=== PATIENT | female | born 1935 | race Caucasian/White ===

== ENCOUNTER 2018-09-04 19:37 | Emergency (ER) | payer MEDICARE ==
[2018-09-04] MEDS ORDERED: ONDANSETRON 4 MG TAB.RAPDIS PO ONE (19:56)
--- NOTE | 2018-09-04 19:59 | ER Document Report ---
ED Medical Screen (RME) - General Stated Complaint: ABDOMINAL PAIN Time Seen by Provider: 09/04/18 19:48 Notes: 83-year-old female patient with chronic A. fib, hypertension, hyperlipidemia, no history of coronary artery disease. There is probably some dementia. She is complaining of a posterior cervical/occipital type headache for the past 3 days. She has had mid abdominal pain but she is not sure how many days. There has been nausea without vomiting. She is on Coumadin. I have greeted and performed a rapid initial assessment of this patient. A comprehensive ED assessment and evaluation of the patient, analysis of test results and completion of the medical decision making process will be conducted by additional ED providers. TRAVEL OUTSIDE OF THE [place] IN LAST 30 DAYS: No - Related Data Allergies/Adverse Reactions: codeine [Codeine] Allergy (Verified 07/21/14 14:09) ITCHING phenobarbital [Phenobarbital] Allergy (Verified 07/21/14 14:09) clarithromycin [From Biaxin] Adverse Reaction (Verified 07/27/14 09:52) propafenone HCl [From Rythmol] Adverse Reaction (Verified 07/27/14 09:52) Past Medical History - Social History Frequency of alcohol use: None Drug Abuse: None - Past Medical History Cardiac Medical History: Reports: Hx Hypertension - VARIES Denies: Hx Heart Attack Pulmonary Medical History: Denies: Hx Asthma Neurological Medical History: Denies: Hx Cerebrovascular Accident, Hx Seizures Renal/ Medical History: Denies: Hx Peritoneal Dialysis GI Medical History: Denies: Hx Hepatitis, Hx Hiatal Hernia, Hx Ulcer Infectious Medical History: Denies: Hx Hepatitis Past Surgical History: Reports: Hx Hysterectomy. Denies: Hx Mastectomy, Hx Open Heart Surgery, Hx Pacemaker Doctor's Discharge - Discharge Referrals: ERIKA BAUTISTA MD [Primary Care Provider] - Follow up as needed
[2018-09-04 20:45] LABS: ABSOLUTE LYMPHOCYTES (AUTO) 1.2 10^3/uL (0.5-4.7); ABSOLUTE MONOCYTES (AUTO) 0.4 10^3/uL (0.1-1.4); ABSOLUTE NEUT (AUTO) 7.2 10^3/uL (1.7-8.2); BASOPHILS % (AUTO) 0.2 % (0-2); EOSINOPHILS % (AUTO) 0.3 % (0-6); HEMATOCRIT 36.9 % (36.0-47.0); HEMOGLOBIN 12.9 g/dL (12.0-15.5); LYMPHOCYTES % (AUTO) 13.7 % (13-45); MEAN CORPUSCULAR HEMOGLOBIN 30.3 pg (27.0-33.4); MEAN CORPUSCULAR HGB CONC 34.9 g/dL (32.0-36.0); MEAN CORPUSCULAR VOLUME 87 fl (80-97); MONOCYTES % (AUTO) 4.7 % (3-13); PLATELET COUNT 186 10^3/uL (150-450); RED BLOOD COUNT 4.26 10^6/uL (3.72-5.28); RED CELL DISTRIBUTION WIDTH 13.3 % (11.5-14.0); SEGMENTED NEUTROPHILS % (AUTO) 81.1 % (42-78); TOTAL CELLS COUNTED % (AUTO) 100 %; WHITE BLOOD COUNT 8.9 10^3/uL (4.0-10.5)
[2018-09-04 21:09] LABS: INTERNATIONAL RATION (INR) 3.21; PROTHROMBIN TIME 34.3 SEC (11.4-15.4)
[2018-09-04 21:15] LABS: CREATINE KINASE MB 1.16 ng/mL (<4.55); TROPONIN I 0.015 ng/mL
[2018-09-04 21:47] LABS: ALANINE AMINOTRANSFERASE 23 U/L (9-52); ALBUMIN 4.1 g/dL (3.5-5.0); ALKALINE PHOSPHATASE 57 U/L (38-126); ANION GAP 12 (5-19); ASPARTATE AMINO TRANSFERASE 29 U/L (14-36); BILIRUBIN,DIRECT 0.3 mg/dL (0.0-0.4); BILIRUBIN,TOTAL 0.7 mg/dL (0.2-1.3); BLOOD UREA NITROGEN 16 mg/dL (7-20); CALCIUM 9.1 mg/dL (8.4-10.2); CARBON DIOXIDE 23 mmol/L (22-30); CHLORIDE 97 mmol/L (98-107); CREATINE KINASE 25 U/L (30-135); GLUCOSE 127 mg/dL (75-110); LIPASE 75.7 U/L (23-300); SODIUM 132.3 mmol/L (137-145); TOTAL PROTEIN 7.1 g/dL (6.3-8.2)
[2018-09-04 21:59] LABS: APPEARANCE,URINE CLEAR; BILIRUBIN,URINE NEGATIVE (NEGATIVE); COLOR,URINE YELLOW; GLUCOSE, URINE NEGATIVE (NEGATIVE); KETONES,URINE 20 mg/dL (NEGATIVE); LEUKOCYTE ESTERASE,URINE TRACE (NEGATIVE); NITRITE,URINE NEGATIVE (NEGATIVE); PROTEIN,URINE NEGATIVE (NEGATIVE); URINE SPECIFIC GRAVITY 1.019; UROBILINOGEN,URINE NEGATIVE mg/dL (<2.0)
[2018-09-04] MEDS ORDERED: NORMAL SALINE 1000 ML 500 ML IV ONE (22:00)
--- NOTE | 2018-09-04 22:01 | ER Document Report ---
ED General - General Stated Complaint: ABDOMINAL PAIN Time Seen by Provider: 09/04/18 19:48 Cannot obtain history due to: Altered mental status Notes: Patient is an 83-year-old female who presents with her with concerns of confusion, sleeping all day, having complained of intermittent abdominal pain for the past 5 days. The patient is also apparently complained of intermittent headache for the past 3 days. She does not provide any history to me. She is sleeping throughout the entire history, wakes briefly and then falls immediately back to sleep TRAVEL OUTSIDE OF THE [place] IN LAST 30 DAYS: No - Related Data Allergies/Adverse Reactions: codeine [Codeine] Allergy (Verified 07/21/14 14:09) ITCHING phenobarbital [Phenobarbital] Allergy (Verified 07/21/14 14:09) clarithromycin [From Biaxin] Adverse Reaction (Verified 07/27/14 09:52) propafenone HCl [From Rythmol] Adverse Reaction (Verified 07/27/14 09:52) Past Medical History - General Information source: Relative - Social History Smoking Status: Never Smoker Frequency of alcohol use: None Drug Abuse: None Lives with: Parents Family History: Reviewed & Not Pertinent Patient has suicidal ideation: No Patient has homicidal ideation: No - Past Medical History Cardiac Medical History: Reports: Hx Hypertension - VARIES Denies: Hx Heart Attack Pulmonary Medical History: Denies: Hx Asthma Neurological Medical History: Denies: Hx Cerebrovascular Accident, Hx Seizures Renal/ Medical History: Denies: Hx Peritoneal Dialysis GI Medical History: Denies: Hx Hepatitis, Hx Hiatal Hernia, Hx Ulcer Infectious Medical History: Denies: Hx Hepatitis Past Surgical History: Reports: Hx Hysterectomy. Denies: Hx Mastectomy, Hx Open Heart Surgery, Hx Pacemaker Review of Systems - Review of Systems -: Yes ROS unobtainable due to patient's medical condition Physical Exam - Vital signs Vitals: Temp Pulse Resp BP Pulse Ox 97.6 F 65 16 160/68 H 97 09/04/18 19:43 09/04/18 19:43 09/04/18 19:43 09/04/18 19:43 09/04/18 19:43 Interpretation: Normal Notes: PHYSICAL EXAMINATION: GENERAL: Sleeping soundly, wakes to loud voice HEAD: Atraumatic, normocephalic. EYES: Pupils equal round and reactive to light, extraocular movements intact, sclera anicteric, conjunctiva are normal. ENT: nares patent, oropharynx clear without exudates. Mildly dry mucous membranes. NECK: Normal range of motion, supple without lymphadenopathy LUNGS: Breath sounds clear to auscultation bilaterally and equal. No wheezes rales or rhonchi. HEART: Irregular regular rate and rhythm without murmurs ABDOMEN: Soft, nontender, normoactive bowel sounds. No guarding, no rebound. No masses appreciated. EXTREMITIES: Normal range of motion, no pitting or edema. No cyanosis. NEUROLOGICAL: Face symmetric. Tongue protrudes midline. Extraocular motions intact. Pupils are 2 mm and equally reactive. Normal speech, normal gait. 5 out of 5 strength in both the distal and proximal upper and lower extremities bilaterally. Sensation is grossly intact throughout. Finger to nose testing normal. Pronator drift normal. PSYCH: Lethargic, wakes only to loud voice or noxious stimulus SKIN: Warm, Dry, normal turgor, well-healing incision to the right tibial plateau surface Course - Re-evaluation Re-evalutation: 09/04/18 21:59 Presentation of altered mental status with complaints of intermittent abdominal pain. Patient does not answer any my questions, her states that for the past 5 days he has noted a progressive decline in her mental status. For me the patient is effectively somnolent, wakes to loud voice and repeated stimulation but rapidly falls back asleep mid conversation. She follows commands in all 4 extremities after repeated requests. No focal neurologic deficit. No evidence of head trauma. She had a lesion removed from her left tibial surface, wound is well healing, no evidence of infection. Labs show a subtherapeutic INR, UA pending. Will also obtain a CT of the head and chest x- ray. Patient is profoundly altered, will require hospitalization. 09/05/18 2300 I contacted radiology several times awaiting reports. Patient's mental status has improved substantially she is now awake, talking, oriented x3. Suspect that she may have taken Tylenol PM per the 's report. 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 I have reassessed the patient's neurologic exam. Thankfully, she is now fully awake, alert, oriented. She has no focal neurologic deficits on exam. She does report that she may have had some falls over the last several days. I have ordered FFP, IV vitamin K for supratherapeutic INR reversal. I have contacted [facility] and have requested transfer. Dexamethasone 10 mg is also been administered. 09/05/18 01:43 I spoken to the neurosurgeon on-call at [facility] Dr. Fajardo who agrees with management. He has accepted the patient in transfer. The patient continues to be alert and oriented. Continue to monitor closely. 09/05/18 03:51 Patient has remained neurologically intact, mentating normally. She is appropriate for transport. - Vital Signs Vital signs: Temp Pulse Resp BP Pulse Ox 98.6 F 85 14 169/84 H 98 09/05/18 02:48 09/05/18 03:31 09/05/18 03:31 09/05/18 03:31 09/05/18 03:31 - Laboratory Result Diagrams: 09/04/18 20:20 09/04/18 20:20 Laboratory results interpreted by me: 09/04/18 09/04/18 09/04/18 20:20 20:20 20:20 Seg Neutrophils % 81.1 H PT 34.3 H Sodium 132.3 L Chloride 97 L Glucose 127 H Creatine Kinase 25 L Urine Ketones Ur Leukocyte Esterase Urine Ascorbic Acid 09/04/18 21:42 Seg Neutrophils % PT Sodium Chloride Glucose Creatine Kinase Urine Ketones 20 H Ur Leukocyte Esterase TRACE H Urine Ascorbic Acid 40 H - Diagnostic Test Radiology reviewed: Image reviewed, Reports reviewed Radiology results interpreted by me: 09/05/18 03:51 Chest x-ray: No acute infiltrate or pneumothorax CT head: Bilateral 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, rightward shift Critical Care Note - Critical Care Note Total time excluding time spent on procedures (mins): 36 Comments: Critical care time spent obtaining history from patient or surrogate, discussions with consultants, development of treatment plan with patient or surrogate, evaluation of patient's response to treatment, examination of patient , ordering and performing treatments and interventions, ordering and review of laboratory studies, re-evaluation of patient's condition, ordering and review of radiographic studies and review of old charts Discharge - Discharge Clinical Impression: Bilateral subdural hematomas Altered mental status Qualifiers: Altered mental status type: disorientation Qualified Code(s): R41.0 - Disorientation, unspecified Headache Qualifiers: Headache type: unspecified Headache chronicity pattern: acute headache Intractability: not intractable Qualified Code(s): R51 - Headache Condition: Fair Disposition: [facility] Referrals: ERIKA BAUTISTA MD [Primary Care Provider] - Follow up as needed
--- NOTE | 2018-09-04 22:35 | RADIOLOGY REPORT (SQ) ---
EXAM DESCRIPTION: XR CHEST 1 VIEW COMPLETED DATE/TME: 09/04/2018 21:58 CLINICAL HISTORY: ams COMPARISON: None FINDINGS: Cardiac silhouette is within normal limits. Aorta is tortuous. There is atherosclerosis. EKG leads project over the chest. There is no focal parenchymal or pleural disease. There is no acute osseous process visualized. IMPRESSION: No evidence of acute cardiopulmonary disease.
[2018-09-05] MEDS ORDERED: DEXAMETHASONE SOD PHOS INJ 10 MG/1 ML VIAL IV ONE (00:53)
[2018-09-05] MEDS ORDERED: PHYTONADIONE INJ 10 MG/1 ML AMPULE IV ONE (00:54)
[2018-09-05] MEDS ORDERED: NORMAL SALINE 250 ML IV PRN (00:54)
--- NOTE | 2018-09-05 00:57 | RADIOLOGY REPORT (SQ) ---
CLINICAL DATA: 83-year-old female with altered mental status. TECHNICAL DATA: Multiple axial CT images of the brain were performed followed by sagittal and coronal reconstructed images. The CT study is performed according to ALARA (as low as reasonably achievable) or ALARA/IMAGE GENTLY, with automatic adjustment of mA and/or kV according to patient size. Comparisons: None. FINDINGS: There are bilateral mixed attenuation extra-axial fluid collections larger on the left consistent with acute on chronic subdural hematomas. The left subdural fluid collection measures approximately 1.5 cm in diameter (series 2, image 20). The right subdural fluid collection measures approximately 0.5 cm in diameter (series 2, image 22). There is approximately 0.5 cm of subfalcine herniation to the right of midline. There is sulcal effacement over both cerebral convexities. There is mass effect on the atria and posterior horn of the left lateral ventricle. No definite intraparenchymal hemorrhage is identified. No intraventricular hemorrhage is seen. There is no evidence of hydrocephalus. There are scattered patchy areas of decreased subcortical and periventricular attenuation most consistent with mild chronic microangiopathy.. There is no significant mucosal thickening of the paranasal sinuses. The mastoid air cells are clear. The orbital contents are grossly unremarkable. No acute osseous abnormalities are identified. IMPRESSION: 1. Bilateral mixed attenuation extra-axial fluid collections larger on the left consistent with acute on chronic subdural hematomas with approximately 0.5 cm subfalcine herniation to the right of midline. 2. There is diffuse sulcal effacement over both cerebral convexities consistent with underlying cerebral edema. These critical findings were discussed with Dr. Blackburn on 09/04/2018 at 11:50 AM central time.
--- NOTE | 2018-09-05 01:15 | RADIOLOGY REPORT (SQ) ---
CLINICAL DATA: 83-year-old female TECHNICAL DATA: Axial CT imaging of the abdomen and pelvis was performed following the administration of intravenous contrast.. Sagittal and coronal reconstructed images were then performed. The CT study is performed according to ALARA (as low as reasonably achievable) or ALARA/IMAGE GENTLY, with automatic adjustment of mA and/or kV according to patient size. Comparison: None FINDINGS: Lung bases: The lung bases are clear. There is minimal bibasilar atelectasis and/or fibrosis. Liver:The liver is normal in size and configuration. No focal hepatic abnormalities are identified. Liver attenuation is within normal limits. Spleen:The spleen is normal is size, configuration and attenuation. Gallbladder and bile duct: The gallbladder is well distended and unremarkable. There is no biliary ductal dilatation. Pancreas: The pancreas is grossly normal in size and configuration. Adrenal Glands:The adrenal glands are normal in size and configuration. Kidneys:The kidneys are normal in size and configuration. There is no evidence of hydronephrosis. There is no evidence of nephrolithiasis. No definite solid or cystic renal mass lesions are identified. Stomach:The stomach is grossly normal. There is no definite hiatal hernia. Bowel:The bowel gas pattern is non specific and non obstructive. Appendix: There is no CT evidence of acute appendicitis. Free air:There is no evidence of free air. Free fluid: There is no evidence of free fluid. Vasculature: The aorta is normal in caliber and contour. There are atherosclerotic calcifications along the abdominal aorta and iliac arteries. The inferior vena cava is grossly unremarkable. Lymphadenopathy: No pathologic lymphadenopathy is identified. Bladder: The bladder is well distended and smooth in contour. Reproductive: The uterus is surgically absent. Bones: No acute osseous abnormalities are identified. There are mild degenerative changes along the visualized thoracolumbar spine. Soft tissues: No focal soft tissue abnormalities are identified. IMPRESSION: 1. No evidence of acute intra-abdominal or intrapelvic pathology. 2. Mild degenerative changes along the skeletal and vascular structures.
[2018-09-05 04:24] VITALS: BP 165/76
--- NOTE | 2018-09-05 10:13 | EKG REPORT ---
SEVERITY:- ABNORMAL ECG - SINUS RHYTHM LBBB WITH PRIMARY T WAVE CHANGES : Confirmed by: Abelardo Pittman 05-Sep-2018 10:13:04
== END 2018-09-05 04:20 | disposition short-term general hospital (02) ==
LOC: ER 19:37
DX: I62.00 Nontraumatic subdural hemorrhage, unspecified (principal); R41.0 Disorientation, unspecified; R10.9 Unspecified abdominal pain; R51 Headache; Z88.6 Allergy status to analgesic agent; Z90.710 Acquired absence of both cervix and uterus
CPT/HCPCS: 93005; 99291; 86900; 86901; 36415; 82553; 36430; 82550; 83690; 85025; 85652; 85610; 80053; 81001; 84484; 71045; 70450; 74177; 93010; P9017; A9270; J3430; J7030; J1100; S0119

== ENCOUNTER 2018-09-15 15:41 | Emergency (ER) | payer MEDICARE ==
[2018-09-15] MEDS ORDERED: ASPIRIN 81 MG TABLET, CHEWABLE PO ONE (16:20)
--- NOTE | 2018-09-15 16:23 | ER Document Report ---
ED Medical Screen (RME) - General Chief Complaint: Irregular Pulse Stated Complaint: POSSIBLE AFIB Time Seen by Provider: 09/15/18 16:13 Mode of Arrival: Ambulatory Information source: Patient Notes: Patient presents to the ED for complaints of palpitations. Patient says that she picked up her cat and then noticed her heart racing. She does have a history of A. fib. She says that her heart felt like it was racing faster than she ever felt before. She was having associated shortness of breath. 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 She was sent to [facility]. Patient has been off her warfarin since then. She denies headache, vision changes, speech changes, numbness, tingling, or weakness. I have greeted and performed a rapid initial assessment of this patient. A comprehensive ED assessment and evaluation of the patient, analysis of test results and completion of the medical decision making process will be conducted by additional ED providers. PHYSICAL EXAMINATION: GENERAL: Well-appearing, well-nourished and in no acute distress. HEAD: Atraumatic, normocephalic. EYES: Pupils equal round extraocular movements intact, conjunctiva are normal. ENT: Nares patent NECK: Normal range of motion LUNGS: No respiratory distress Musculoskeletal: Normal range of motion NEUROLOGICAL: Normal speech, normal gait. PSYCH: Normal mood, normal affect. SKIN: Warm, Dry, normal turgor, no rashes or lesions noted. TRAVEL OUTSIDE OF THE [place] IN LAST 30 DAYS: No - Related Data Allergies/Adverse Reactions: codeine [Codeine] Allergy (Verified 07/21/14 14:09) ITCHING phenobarbital [Phenobarbital] Allergy (Verified 07/21/14 14:09) clarithromycin [From Biaxin] Adverse Reaction (Verified 07/27/14 09:52) propafenone HCl [From Rythmol] Adverse Reaction (Verified 07/27/14 09:52) Past Medical History - Social History Chew tobacco use (# tins/day): No Frequency of alcohol use: None Drug Abuse: None - Past Medical History Cardiac Medical History: Reports: Hx Atrial Fibrillation, Hx Hypertension - VARIES Denies: Hx Heart Attack Pulmonary Medical History: Denies: Hx Asthma Neurological Medical History: Denies: Hx Cerebrovascular Accident, Hx Seizures Renal/ Medical History: Denies: Hx Peritoneal Dialysis GI Medical History: Reports: Hx Gastroesophageal Reflux Disease. Denies: Hx Hepatitis, Hx Hiatal Hernia, Hx Ulcer Infectious Medical History: Denies: Hx Hepatitis Past Surgical History: Reports: Hx Cardiac Catheterization - breast tumor non cancer, Hx Hysterectomy. Denies: Hx Mastectomy, Hx Open Heart Surgery, Hx Pacemaker Physical Exam - Vital signs Vitals: Temp Pulse Resp BP Pulse Ox 97.6 F 67 14 143/71 H 95 09/15/18 16:00 09/15/18 16:00 09/15/18 16:00 09/15/18 16:00 09/15/18 16:00 Course - Vital Signs Vital signs: Temp Pulse Resp BP Pulse Ox 97.6 F 67 14 143/71 H 95 09/15/18 16:00 09/15/18 16:00 09/15/18 16:00 09/15/18 16:00 09/15/18 16:00 Doctor's Discharge - Discharge Referrals: ERIKA BAUTISTA MD [Primary Care Provider] - Follow up as needed
[2018-09-15 16:51] LABS: HEMATOCRIT 39.1 % (36.0-47.0); HEMOGLOBIN 13.5 g/dL (12.0-15.5); MEAN CORPUSCULAR HEMOGLOBIN 30.1 pg (27.0-33.4); MEAN CORPUSCULAR HGB CONC 34.4 g/dL (32.0-36.0); MEAN CORPUSCULAR VOLUME 88 fl (80-97); PLATELET COUNT 191 10^3/uL (150-450); RED BLOOD COUNT 4.47 10^6/uL (3.72-5.28); RED CELL DISTRIBUTION WIDTH 13.8 % (11.5-14.0); WHITE BLOOD COUNT 16.2 10^3/uL (4.0-10.5)
--- NOTE | 2018-09-15 17:07 | RADIOLOGY REPORT (SQ) ---
EXAM DESCRIPTION: CHEST SINGLE VIEW COMPLETED DATE/TIME: 09/15/2018 4:57 pm REASON FOR STUDY: palpitations COMPARISON: 09/04/2018 EXAM PARAMETERS: NUMBER OF VIEWS: One view. TECHNIQUE: Single frontal radiographic view of the chest acquired. RADIATION DOSE: NA LIMITATIONS: None. FINDINGS: LUNGS AND PLEURA: The lungs are somewhat hyperexpanded. There is no infiltrate or effusio n. There is no mass. MEDIASTINUM AND HILAR STRUCTURES: No masses. Contour normal. HEART AND VASCULAR STRUCTURES: Heart normal in size. Normal vasculature. BONES: No acute findings. HARDWARE: None in the chest. OTHER: No other significant finding. IMPRESSION: Chronic lung changes with no acute cardiopulmonary disease. TECHNICAL DOCUMENTATION: JOB ID: [id number] [employer]- All Rights Reserved Reading location - IP/workstation name: [email or web address]
[2018-09-15 17:13] LABS: ALANINE AMINOTRANSFERASE 73 U/L (9-52); ALBUMIN 3.5 g/dL (3.5-5.0); ALKALINE PHOSPHATASE 46 U/L (38-126); ANION GAP 11 (5-19); ASPARTATE AMINO TRANSFERASE 64 U/L (14-36); BILIRUBIN,DIRECT 0.2 mg/dL (0.0-0.4); BILIRUBIN,TOTAL 0.9 mg/dL (0.2-1.3); BLOOD UREA NITROGEN 37 mg/dL (7-20); CALCIUM 8.4 mg/dL (8.4-10.2); CARBON DIOXIDE 25 mmol/L (22-30); CHLORIDE 96 mmol/L (98-107); GLUCOSE 120 mg/dL (75-110); POTASSIUM 4.4 mmol/L (3.6-5.0); SODIUM 132.1 mmol/L (137-145); TOTAL PROTEIN 6.2 g/dL (6.3-8.2)
[2018-09-15 17:14] LABS: CREATINE KINASE < 20 U/L (30-135)
[2018-09-15 17:22] LABS: ABSOLUTE LYMPHOCYTES# (MANUAL) 0.3 10^3/uL (0.5-4.7); ABSOLUTE MONOCYTES # (MANUAL) 0.5 10^3/uL (0.1-1.4); ABSOLUTE NEUTROPHILS# (MANUAL) 15.4 10^3/uL (1.7-8.2); BASOPHILS % (MANUAL) 0 % (0-2); EOSINOPHILS % (MANUAL) 0 % (0-6); LYMPHOCYTES % (MANUAL) 2 % (13-45); MONOCYTES % (MANUAL) 3 % (3-13); SEGMENTED NEUTROPHILS % (MAN) 95 % (42-78); TOTAL CELLS COUNTED 100
[2018-09-15 17:23] LABS: OVALOCYTES 1+; PLATELET COMMENT ADEQUATE; POIKILOCYTOSIS 1+; TOXIC GRANULATION SLIGHT; TOXIC VACUOLATION PRESENT
[2018-09-15 17:24] LABS: CREATINE KINASE MB 1.69 ng/mL (<4.55)
[2018-09-15 17:32] LABS: TROPONIN I 0.037 ng/mL
--- NOTE | 2018-09-15 17:34 | EKG REPORT ---
SEVERITY:- ABNORMAL ECG - SINUS RHYTHM LEFT BUNDLE BRANCH BLOCK : Confirmed by: Jorge Benavidez MD 15-Sep-2018 17:33:26
--- NOTE | 2018-09-15 18:37 | RADIOLOGY REPORT (SQ) ---
EXAM DESCRIPTION: CT HEAD WITHOUT COMPLETED DATE/TIME: 09/15/2018 6:08 pm REASON FOR STUDY: headache COMPARISON: 09/04/2018 TECHNIQUE: Axial images acquired through the brain without intravenous contrast. Images reviewed wi th bone, brain and subdural windows. Additional sagittal and coronal reconstructions were generated. Images stored on PACS. All CT scanners at this facility use dose modulation, iterative reconstruction, and/or weight based d osing when appropriate to reduce radiation dose to as low as reasonably achievable (ALARA). [facility]: Dose Right [facility]: CareDose [facility]: Dose Right [facility]: Teradose 4D [facility]: Smart [employer] RADIATION DOSE: CT Rad equipment meets quality standard of care and radiation dose reduction techniq ues were employed. CTDIvol: 55.2 mGy. DLP: 974 mGy-cm. mGy. LIMITATIONS: None. FINDINGS: VENTRICLES: Normal size and contour. CEREBRUM: No masses. No hemorrhage. No midline shift. No evidence for acute infarction. Few scatte red areas of low density in the white matter most likely chronic small vessel ischemic changes. CEREBELLUM: No masses. No hemorrhage. No alteration of density. No evidence for acute infarction. EXTRAAXIAL SPACES: Subdural fluid collections present on the prior study are much smaller. There is a small residual left subdural collection. A a small amount of acute hemorrhage is suggested on imag e 19 in the parieto-occipital region on the left. These findings are seen better on the coronal seri es. ORBITS AND GLOBE: No intra- or extraconal masses. Normal contour of globe without masses. CALVARIUM: No fracture. PARANASAL SINUSES: No fluid or mucosal thickening. SOFT TISSUES: No mass or hematoma. OTHER: No other significant finding. IMPRESSION: Chronic microvascular ischemia. There appears to be an acute to subacute left subdural fluid collection involving the parietoccipital area. The large subdural fluid collections seen on th e earlier study are no longer evident. EVIDENCE OF ACUTE STROKE: NO. COMMENT: Findings were discussed with the ordering physician at 1830 hours on this date. Quality ID # [id number]: Final reports with documentation of one or more dose reduction techniques (e.g., Au tomated exposure control, adjustment of the mA and/or kV according to patient size, use of iterative reconstruction technique) TECHNICAL DOCUMENTATION: JOB ID: [id number]- All Rights Reserved Reading location - IP/workstation name: [email or web address]
[2018-09-15 19:00] LABS: INTERNATIONAL RATION (INR) 1.02; PROTHROMBIN TIME 13.9 SEC (11.4-15.4)
[2018-09-15] MEDS ORDERED: AMLODIPINE BESYLATE 2.5 MG TABLET PO ONE (19:04)
--- NOTE | 2018-09-15 20:08 | ER Document Report ---
ED General - General Chief Complaint: Irregular Pulse Stated Complaint: POSSIBLE AFIB Time Seen by Provider: 09/15/18 16:13 Mode of Arrival: Ambulatory Information source: Patient, Relative Notes: This is an 83-year-old female with a history of atrial fibrillation (previously on Coumadin), status post spontaneous subdural hematomas with recent hospitalization in [place]. Patient was discontinued from Coumadin at that time. She was placed on Decadron for swelling associated with the bleeding. Her symptoms did improve as per the patient's and she is been doing well at home. Patient states that she was told not to lift more than 5 pounds. She bent down to lift up the cat (which is 15 pounds) when the cat tried to leave the house. Patient states on arising, she felt lightheaded and had palpitations for approximately 10 minutes. Patient's states he did not like the way she looked and brought her to the emergency room for evaluation. Patient states he she never had any chest pain or shortness of breath. She denies any headache. She denies having any headache with this episode today. TRAVEL OUTSIDE OF THE [place] IN LAST 30 DAYS: No - HPI Onset: Just prior to arrival Onset/Duration: Sudden Quality of pain: No pain Severity: None Pain Level: Denies Associated symptoms: Other - Palpitations and lightheadedness. denies: Chest pain, Fever, Shortness of breath Exacerbated by: Other - And occurred when leaning down to sheepskin pickler Relieved by: Other - Symptoms resolved spontaneously after 10 minutes Similar symptoms previously: Yes Recently seen / treated by doctor: Yes - Related Data Allergies/Adverse Reactions: codeine [Codeine] Allergy (Verified 07/21/14 14:09) ITCHING phenobarbital [Phenobarbital] Allergy (Verified 07/21/14 14:09) clarithromycin [From Biaxin] Adverse Reaction (Verified 07/27/14 09:52) propafenone HCl [From Rythmol] Adverse Reaction (Verified 07/27/14 09:52) Past Medical History - General Information source: Patient - Social History Smoking Status: Never Smoker Cigarette use (# per day): No Chew tobacco use (# tins/day): No Frequency of alcohol use: None Drug Abuse: None Lives with: Family Family History: Reviewed & Not Pertinent Patient has suicidal ideation: No Patient has homicidal ideation: No - Past Medical History Cardiac Medical History: Reports: Hx Atrial Fibrillation, Hx Hypertension - VARIES Denies: Hx Heart Attack Pulmonary Medical History: Denies: Hx Asthma Neurological Medical History: Denies: Hx Cerebrovascular Accident, Hx Seizures Renal/ Medical History: Denies: Hx Peritoneal Dialysis GI Medical History: Reports: Hx Gastroesophageal Reflux Disease. Denies: Hx Hepatitis, Hx Hiatal Hernia, Hx Ulcer Infectious Medical History: Denies: Hx Hepatitis Past Surgical History: Reports: Hx Cardiac Catheterization - breast tumor non cancer, Hx Hysterectomy. Denies: Hx Mastectomy, Hx Open Heart Surgery, Hx Pacemaker Review of Systems - Review of Systems Constitutional: denies: Chills, Fever EENT: No symptoms reported Cardiovascular: Palpitations, Lightheaded. denies: Chest pain, Dyspnea, Syncope Respiratory: No symptoms reported Gastrointestinal: No symptoms reported Genitourinary: No symptoms reported Female Genitourinary: No symptoms reported Musculoskeletal: No symptoms reported Skin: No symptoms reported Hematologic/Lymphatic: No symptoms reported Neurological/Psychological: Other - Lightheadedness Physical Exam - Vital signs Vitals: Temp Pulse Resp BP Pulse Ox 97.6 F 67 14 143/71 H 95 09/15/18 16:00 09/15/18 16:00 09/15/18 16:00 09/15/18 16:00 09/15/18 16:00 Notes: Physical exam: GENERAL: A 83-year-old female, alert and oriented x3, no acute distress. Patient is conversant. Patient is at her baseline as per the who is at the bedside. HEAD: Atraumatic, normocephalic. EYES: Pupils equal round and reactive to light, extraocular movements intact, sclera anicteric, conjunctiva are normal. ENT: TMs normal, nares patent, oropharynx clear without exudates. Moist mucous membranes. NECK: Normal range of motion, supple without obvious mass or JVD. LUNGS: Breath sounds clear to auscultation bilaterally and equal. No wheezes rales or rhonchi. HEART: Regular rate and rhythm without murmurs, rubs or gallops. ABDOMEN: Soft, normoactive bowel sounds. No tenderness to palpation. No guarding, no rebound. No masses appreciated. EXTREMITIES: Normal range of motion, no pitting or edema. No clubbing or cyanosis. NEUROLOGICAL: Cranial nerves II through XII grossly intact. Normal speech, moving all extremities. PSYCH: Normal mood, normal affect. SKIN: Warm, Dry, normal turgor, no rashes or lesions noted. Course - Re-evaluation Re-evalutation: 09/15/18 20:13 [facility] [place]. I reviewed the ER records from the last presentation: Patient was clearly much more altered in her mental status was significantly worse than how she is now. Patient is at her baseline as per the patient as well as her . Patient is smiling, conversant and appears in no distress. The case was discussed with Dr. Sawant of neurosurgery. He had time to review the CT films and he felt that the films were acceptable for patient discharge. I conveyed this to the patient and her who are happy and will follow up with Dr. Stallings of neurosurgery (she has an appointment with him in 1 week). - Vital Signs Vital signs: Temp Pulse Resp BP Pulse Ox 97.6 F 67 20 179/81 H 97 09/15/18 16:00 09/15/18 16:00 09/15/18 20:00 09/15/18 19:41 09/15/18 20:00 - Laboratory Result Diagrams: 09/15/18 16:36 09/15/18 16:36 Laboratory results interpreted by me: 09/15/18 09/15/18 16:36 16:36 WBC 16.2 H Seg Neuts % (Manual) 95 H Lymphocytes % (Manual) 2 L Abs Neuts (Manual) 15.4 H Abs Lymphs (Manual) 0.3 L Sodium 132.1 L Chloride 96 L BUN 37 H Glucose 120 H AST 64 H ALT 73 H Creatine Kinase < 20 L Total Protein 6.2 L - Diagnostic Test Radiology reviewed: Image reviewed, Reports reviewed - CT of the head shows possible new bleeding in the occipital parietal region. - EKG Interpretation by Me Rate: Normal Rhythm: NSR - EKG shows normal sinus rhythm with a ventricular rate of 74, there is a left bundle branch block. The patient does have a history of a left bundle branch block. Critical Care Note - Critical Care Note Total time excluding time spent on procedures (mins): 60 Discharge - Discharge Clinical Impression: Lightheadedness, Palpitations, Known subdural bleeding Condition: Stable Disposition: HOME, SELF-CARE Additional Instructions: As we discussed, Dr. Sawant at [facility] was able to look at the CAT scan done today and he felt that the CAT scan was acceptable for you to go home and take it easy. We do recommend you follow-up as planned with Dr. Stallings in [address] Stallings know that you were here in the emergency room and that there was a question of rebleeding and Dr. Sawant had looked at the CAT scans. Continue current medicines (no Coumadin). Avoid aspirin. Avoid ibuprofen. You can take Tylenol for headache. Return to the emergency room for any worsening mental status changes, or headache or concerns that are getting worse. Referrals: ERIKA BAUTISTA MD [Primary Care Provider] - Follow up as needed
[2018-09-15 20:17] VITALS: BP 159/76
== END 2018-09-15 20:17 | disposition home or self-care (01) ==
LOC: ER 15:41
DX: R00.2 Palpitations (principal); R42 Dizziness and giddiness; I62.00 Nontraumatic subdural hemorrhage, unspecified; I44.7 Left bundle-branch block, unspecified; Z88.3 Allergy status to other anti-infective agents; I10 Essential (primary) hypertension
CPT/HCPCS: 93005; 99291; 36415; 82553; 82550; 85025; 85610; 80053; 84484; 71045; 70450; 93010; A9270 ×2

== ENCOUNTER 2018-12-29 20:20 | Emergency (ER) | payer MEDICARE ==
[2018-12-29 22:15] LABS: ABSOLUTE LYMPHOCYTES (AUTO) 0.9 10^3/uL (0.5-4.7); ABSOLUTE MONOCYTES (AUTO) 0.9 10^3/uL (0.1-1.4); ABSOLUTE NEUT (AUTO) 7.1 10^3/uL (1.7-8.2); BASOPHILS % (AUTO) 0.2 % (0-2); EOSINOPHILS % (AUTO) 0.1 % (0-6); HEMATOCRIT 36.9 % (36.0-47.0); HEMOGLOBIN 12.8 g/dL (12.0-15.5); LYMPHOCYTES % (AUTO) 9.6 % (13-45); MEAN CORPUSCULAR HGB CONC 34.6 g/dL (32.0-36.0); MEAN CORPUSCULAR VOLUME 86 fl (80-97); MONOCYTES % (AUTO) 9.7 % (3-13); PLATELET COUNT 132 10^3/uL (150-450); RED BLOOD COUNT 4.27 10^6/uL (3.72-5.28); RED CELL DISTRIBUTION WIDTH 13.6 % (11.5-14.0); SEGMENTED NEUTROPHILS % (AUTO) 80.4 % (42-78); TOTAL CELLS COUNTED % (AUTO) 100 %; WHITE BLOOD COUNT 8.8 10^3/uL (4.0-10.5)
[2018-12-29 22:35] LABS: ALANINE AMINOTRANSFERASE 28 U/L (9-52); ALBUMIN 4.4 g/dL (3.5-5.0); ALKALINE PHOSPHATASE 66 U/L (38-126); ANION GAP 7 (5-19); ASPARTATE AMINO TRANSFERASE 26 U/L (14-36); BILIRUBIN,DIRECT 0.1 mg/dL (0.0-0.4); BILIRUBIN,TOTAL 0.4 mg/dL (0.2-1.3); BLOOD UREA NITROGEN 21 mg/dL (7-20); CALCIUM 9.5 mg/dL (8.4-10.2); CARBON DIOXIDE 30 mmol/L (22-30); CHLORIDE 98 mmol/L (98-107); GLUCOSE 114 mg/dL (75-110); LIPASE 111.6 U/L (23-300); POTASSIUM 3.9 mmol/L (3.6-5.0); SODIUM 135.4 mmol/L (137-145); TOTAL PROTEIN 6.5 g/dL (6.3-8.2)
[2018-12-29] MEDS ORDERED: NORMAL SALINE 500 ML IV ONE (23:02)
--- NOTE | 2018-12-29 23:06 | RADIOLOGY REPORT (SQ) ---
EXAM DESCRIPTION: CT HEAD WITHOUT IV CONTRAST COMPLETED DATE/TME: 12/29/2018 22:02 CLINICAL HISTORY: 83 years Female, weakness post subdurals COMPARISON:09/15/2018 TECHNIQUE: No contrast. Coronal and sagittal reformat. This exam was performed according to our departmental dose-optimization program, which includes automated exposure control, adjustment of the mA and/or kV according to patient size and/or use of iterative reconstruction technique. FINDINGS: No hemorrhage or infarct. No mass, mass effect, or midline shift. Mild parenchymal volume loss. Mild left maxillary mucosal thickening. Brain and extra-axial structures appear otherwise intact. Interval absence of previous left-sided subdural hematoma. IMPRESSION: No acute findings.
--- NOTE | 2018-12-29 23:10 | RADIOLOGY REPORT (SQ) ---
EXAM DESCRIPTION: XR CHEST 1 VIEW COMPLETED DATE/TME: 12/29/2018 22:01 CLINICAL HISTORY: 83 years Female, weakness COMPARISON:09/15/2018 NUMBER OF VIEWS/TECHNIQUE: 1/AP FINDINGS: Adequate lung volume, clear parenchyma, normal cardiac silhouette, and intact bony thorax. IMPRESSION: No acute cardiopulmonary findings.
[2018-12-29 23:37] LABS: APPEARANCE,URINE CLEAR; BILIRUBIN,URINE NEGATIVE (NEGATIVE); COLOR,URINE YELLOW; GLUCOSE, URINE NEGATIVE (NEGATIVE); KETONES,URINE NEGATIVE (NEGATIVE); LEUKOCYTE ESTERASE,URINE NEGATIVE (NEGATIVE); NITRITE,URINE NEGATIVE (NEGATIVE); PROTEIN,URINE NEGATIVE (NEGATIVE); URINE SPECIFIC GRAVITY 1.018; UROBILINOGEN,URINE NEGATIVE mg/dL (<2.0)
--- NOTE | 2018-12-29 23:37 | ER Document Report ---
ED General - General Chief Complaint: General Weakness Stated Complaint: WEAKNESS Time Seen by Provider: 12/29/18 21:11 Primary Care Provider: ERIKA BAUTISTA MD [Primary Care Provider] - Follow up as needed TRAVEL OUTSIDE OF THE [place] IN LAST 30 DAYS: No - HPI Patient complains to provider of: weakness Onset: Other - This is an 83-year-old female who presents for evaluation of some weakness today. Her notes that since September at which time she was identified as having subdural hematomas spontaneously she has had a gradual and persistent decline. He notes that today she seemed to be a bit more weak and that she had an episode in which she was a little shaky which made it could start prompted them to present for further evaluation in the emergency room, specifically they deny any chest pain, shortness of breath, focal numbness or weakness, cramping in the abdomen, diarrhea, constipation, dysuria, rashes, fevers, chills, shortness of breath. She is never had anything like this before nothing is made it any better. - Related Data Allergies/Adverse Reactions: codeine [Codeine] Allergy (Verified 07/21/14 14:09) ITCHING phenobarbital [Phenobarbital] Allergy (Verified 07/21/14 14:09) clarithromycin [From Biaxin] Adverse Reaction (Verified 07/27/14 09:52) propafenone HCl [From Rythmol] Adverse Reaction (Verified 07/27/14 09:52) Past Medical History - General Information source: Patient, Relative Cannot obtain history due to: Dementia - Social History Smoking Status: Never Smoker Cigarette use (# per day): No Chew tobacco use (# tins/day): No Smoking Education Provided: No Frequency of alcohol use: None Drug Abuse: None Family History: Reviewed & Not Pertinent - Past Medical History Cardiac Medical History: Reports: Hx Atrial Fibrillation, Hx Hypertension - VARIES Denies: Hx Heart Attack Pulmonary Medical History: Denies: Hx Asthma Neurological Medical History: Denies: Hx Cerebrovascular Accident, Hx Seizures Renal/ Medical History: Denies: Hx Peritoneal Dialysis GI Medical History: Reports: Hx Gastroesophageal Reflux Disease. Denies: Hx Hepatitis, Hx Hiatal Hernia, Hx Ulcer Infectious Medical History: Denies: Hx Hepatitis Past Surgical History: Reports: Hx Cardiac Catheterization - breast tumor non cancer, Hx Hysterectomy. Denies: Hx Mastectomy, Hx Open Heart Surgery, Hx Pacemaker Review of Systems - Review of Systems -: Yes All other systems reviewed and negative Physical Exam - Vital signs Vitals: Temp Pulse Resp BP Pulse Ox 98.7 F 91 16 146/62 H 97 12/29/18 20:20 12/29/18 20:20 12/29/18 20:20 12/29/18 20:20 12/29/18 20:20 Interpretation: Normal - General General appearance: Appears well, Alert - HEENT Head: Normocephalic, Atraumatic Eyes: Normal Pupils: PERRL - Respiratory Respiratory status: No respiratory distress Chest status: Nontender Breath sounds: Normal Chest palpation: Normal - Cardiovascular Rhythm: Regular Heart sounds: Normal auscultation Murmur: No - Abdominal Inspection: Normal Distension: No distension Bowel sounds: Normal Tenderness: Nontender Organomegaly: No organomegaly - Back Back: Normal, Nontender - Extremities General upper extremity: Normal inspection, Nontender, Normal color, Normal ROM, Normal temperature General lower extremity: Normal inspection, Nontender, Normal color, Normal ROM, Normal temperature, Normal weight bearing. No: Juan's sign - Neurological Neuro grossly intact: Yes Cognition: Normal Orientation: AAOx4 [place] Coma Scale Eye Opening: Spontaneous [place] Coma Scale Verbal: Oriented [place] Coma Scale Motor: Obeys Commands [place] Coma Scale Total: 15 Speech: Normal Motor strength normal: LUE, RUE, LLE, RLE Sensory: Normal - Psychological Associated symptoms: Normal affect, Normal mood - Skin Skin Temperature: Warm Skin Moisture: Dry Skin Color: Normal Course - Re-evaluation Re-evalutation: This is a generally well-appearing 83-year-old female who presents for evaluation of nondescript weakness. We will initiate broad workup including x-ray CT head and labs. She has had a subdural in the past as result of her anticoagulation. CT head does not demonstrate any intracranial process at this time, chest x-ray does not demonstrate any infiltrate. Labs are unremarkable, she does have slightly elevated BUN/creatinine ratio suggestive of possible prerenal azotemia as such she may be somewhat dehydrated, will plan for her to undergo administration of IV fluids. Spoke to the as well as the patient who remains benign neurologically at this time. I do not believe she requires hospitalization at this time as a droplets represents more serious underlying condition such as but not limited to sepsis, RI, hypertension, heart block. - Vital Signs Vital signs: Temp Pulse Resp BP Pulse Ox 99.2 F 87 17 148/69 H 97 12/30/18 00:00 12/29/18 21:20 12/30/18 00:01 12/30/18 00:01 12/30/18 00:01 - Laboratory Result Diagrams: 12/29/18 21:50 12/29/18 21:50 Laboratory results interpreted by me: 12/29/18 12/29/18 12/29/18 21:50 21:50 23:17 Plt Count 132 L Seg Neutrophils % 80.4 H Lymphocytes % 9.6 L Sodium 135.4 L BUN 21 H Est GFR (Non-Af Amer) 52 L Glucose 114 H Urine Blood MODERATE H Discharge - Discharge Clinical Impression: Weakness Condition: Good Disposition: HOME, SELF-CARE Instructions: Dehydration ([facility]), Weakness ([facility]) Additional Instructions: You have been seen today in the emergency department for your weakness. You had an evaluation including a CT scan of your head, chest x-ray, blood work, and a urine test. I think that you may have been dehydrated that could be causing your weakness. Think you are likely safe to go home at this time. Make sure you are drinking plenty of fluids to help take care of your hydration. Return in case of worsening chest pain, shortness of breath, lightheadedness or other symptoms. Referrals: ERIKA BAUTISTA MD [Primary Care Provider] - Follow up as needed
[2018-12-30 01:37] VITALS: BP 143/71
== END 2018-12-30 01:28 | disposition home or self-care (01) ==
LOC: ER 20:20
DX: R53.1 Weakness (principal); I48.91 Unspecified atrial fibrillation; I10 Essential (primary) hypertension; Z88.6 Allergy status to analgesic agent; Z88.3 Allergy status to other anti-infective agents; Z90.710 Acquired absence of both cervix and uterus
CPT/HCPCS: 99285; 96360; 36415; 83690; 85025; 80053; 81001; 84484; 83605; 71045; 70450; J7040

== ENCOUNTER 2019-06-05 21:35 | Observation (INO) | payer MEDICARE ==
[2019-06-06 01:33] LABS: ABSOLUTE MONOCYTES (AUTO) 1.3 10^3/uL (0.1-1.4); ABSOLUTE NEUT (AUTO) 11.2 10^3/uL (1.7-8.2); BASOPHILS % (AUTO) 0.4 % (0-2); HEMATOCRIT 38.9 % (36.0-47.0); HEMOGLOBIN 13.4 g/dL (12.0-15.5); LYMPHOCYTES % (AUTO) 7.5 % (13-45); MEAN CORPUSCULAR HEMOGLOBIN 29.7 pg (27.0-33.4); MEAN CORPUSCULAR HGB CONC 34.4 g/dL (32.0-36.0); MEAN CORPUSCULAR VOLUME 87 fl (80-97); MONOCYTES % (AUTO) 9.6 % (3-13); PLATELET COUNT 134 10^3/uL (150-450); RED CELL DISTRIBUTION WIDTH 13.5 % (11.5-14.0); SEGMENTED NEUTROPHILS % (AUTO) 82.5 % (42-78); TOTAL CELLS COUNTED % (AUTO) 100 %; WHITE BLOOD COUNT 13.6 10^3/uL (4.0-10.5)
[2019-06-06 01:34] LABS: INTERNATIONAL RATION (INR) 1.25; PROTHROMBIN TIME 15.8 SEC (11.4-15.4)
[2019-06-06 01:35] LABS: PARTIAL THROMBOPLASTIN TIME 35.2 SEC (23.5-35.8)
[2019-06-06 01:36] LABS: ALANINE AMINOTRANSFERASE 20 U/L (9-52); ALKALINE PHOSPHATASE 70 U/L (38-126); ANION GAP 10 (5-19); ASPARTATE AMINO TRANSFERASE 23 U/L (14-36); BILIRUBIN,DIRECT 0.4 mg/dL (0.0-0.4); BLOOD UREA NITROGEN 27 mg/dL (7-20); CARBON DIOXIDE 26 mmol/L (22-30); CHLORIDE 98 mmol/L (98-107); CREATINE KINASE 37 U/L (30-135); GLUCOSE 133 mg/dL (75-110); SODIUM 133.8 mmol/L (137-145); TOTAL PROTEIN 5.9 g/dL (6.3-8.2)
[2019-06-06 01:47] LABS: CREATINE KINASE MB 0.95 ng/mL (<4.55)
[2019-06-06 01:48] LABS: TROPONIN I < 0.012 ng/mL
--- NOTE | 2019-06-06 02:24 | RADIOLOGY REPORT (SQ) ---
CT head without contrast on 06/06/2019 at 1:55 AM CLINICAL INDICATION: Weakness TECHNIQUE: Multiple axial images are obtained throughout the head without the administration of contrast. This exam was performed according to our departmental dose-optimization program, which includes automated exposure control, adjustment of the mA and/or kV according to patient size and/or use of iterative reconstruction technique. Total DLP is 963.96 mGy*cm. COMPARISON: 12/29/2018 FINDINGS: There is generalized cerebral atrophy. There is low density in the periventricular white matter consistent with chronic small vessel ischemic changes. There is no hydrocephalus. There is no hemorrhage. There are no abnormal extra-axial fluid collections. There is no mass, mass effect or midline shift. There is no CT evidence of acute infarct. No bony abnormality is noted. IMPRESSION: Atrophy and chronic small vessel ischemic changes with no acute intracranial abnormality.
--- NOTE | 2019-06-06 02:30 | RADIOLOGY REPORT (SQ) ---
EXAM DESCRIPTION: XR CHEST 1 VIEW COMPLETED DATE/TME: 06/06/2019 01:11 CLINICAL HISTORY: 84 years Female, weakness COMPARISON: CT, 04/22/18 NUMBER OF VIEWS/TECHNIQUE: 1/AP FINDINGS: Small peripheral atelectasis or scar at the peripheral right mid-upper lung field and left lung base consistent with prior CT from April 2018. Atherosclerotic vascular disease. Adequate lung volume, normal cardiac silhouette, and intact bony thorax. IMPRESSION: No acute cardiopulmonary findings.
[2019-06-06] MEDS ORDERED: NORMAL SALINE 1000 ML 1,000 ML IV ONE (02:41)
--- NOTE | 2019-06-06 02:45 | ER Document Report ---
ED Dizziness/Weakness - General Chief Complaint: Weakness Stated Complaint: SHORTNESS OF BREATH Time Seen by Provider: 06/06/19 00:33 Primary Care Provider: ERIKA BAUTISTA MD [Primary Care Provider] - Follow up as needed Mode of Arrival: Ambulatory Information source: Patient, Relative TRAVEL OUTSIDE OF THE [place] IN LAST 30 DAYS: No - HPI Patient complains to provider of: Weakness Onset: Other - For the past 3 days. Onset/Duration: Constant Quality of pain: No pain Pain Level: Denies Associated symptoms: Short of breath Baseline gait: Walks only w/ assistance - Related Data Allergies/Adverse Reactions: codeine [Codeine] Allergy (Verified 07/21/14 14:09) ITCHING phenobarbital [Phenobarbital] Allergy (Verified 07/21/14 14:09) clarithromycin [From Biaxin] Adverse Reaction (Verified 07/27/14 09:52) propafenone HCl [From Rythmol] Adverse Reaction (Verified 07/27/14 09:52) Past Medical History - Social History Smoking Status: Never Smoker Chew tobacco use (# tins/day): No Frequency of alcohol use: None Drug Abuse: None Family History: Reviewed & Not Pertinent Patient has suicidal ideation: No Patient has homicidal ideation: No - Past Medical History Cardiac Medical History: Reports: Hx Atrial Fibrillation, Hx Hypertension - VARIES Denies: Hx Heart Attack Pulmonary Medical History: Denies: Hx Asthma Neurological Medical History: Denies: Hx Cerebrovascular Accident, Hx Seizures Renal/ Medical History: Denies: Hx Peritoneal Dialysis GI Medical History: Reports: Hx Gastroesophageal Reflux Disease. Denies: Hx Hepatitis, Hx Hiatal Hernia, Hx Ulcer Infectious Medical History: Denies: Hx Hepatitis Past Surgical History: Reports: Hx Cardiac Catheterization - breast tumor non cancer, Hx Hysterectomy. Denies: Hx Mastectomy, Hx Open Heart Surgery, Hx Pacemaker Review of Systems - Review of Systems Constitutional: No symptoms reported EENT: No symptoms reported Cardiovascular: No symptoms reported Respiratory: Short of breath Gastrointestinal: No symptoms reported Genitourinary: No symptoms reported Female Genitourinary: No symptoms reported Musculoskeletal: No symptoms reported Skin: No symptoms reported Hematologic/Lymphatic: No symptoms reported Neurological/Psychological: Weakness -: Yes All other systems reviewed and negative Physical Exam - Vital signs Vitals: Temp Pulse Resp BP Pulse Ox 99.8 F 90 16 157/72 H 98 06/05/19 22:24 06/05/19 22:24 06/05/19 22:24 06/05/19 22:24 06/05/19 22:24 Interpretation: Normal - General General appearance: Appears well, Alert - HEENT Head: Normocephalic, Atraumatic Eyes: Normal Pupils: PERRL - Respiratory Respiratory status: No respiratory distress Chest status: Nontender Breath sounds: Normal Chest palpation: Normal - Cardiovascular Rhythm: Regular Heart sounds: Normal auscultation Murmur: No - Abdominal Inspection: Normal Distension: No distension Bowel sounds: Normal Tenderness: Nontender Organomegaly: No organomegaly - Back Back: Normal, Nontender - Extremities General upper extremity: Normal inspection, Nontender, Normal color, Normal ROM, Normal temperature General lower extremity: Normal inspection, Nontender, Normal color, Normal ROM, Normal temperature, Normal weight bearing. No: Juan's sign - Neurological Neuro grossly intact: Yes Cognition: Normal Orientation: AAOx4 [place] Coma Scale Eye Opening: Spontaneous [place] Coma Scale Verbal: Oriented [place] Coma Scale Motor: Obeys Commands [place] Coma Scale Total: 15 Speech: Normal Motor strength normal: LUE, RUE, LLE, RLE Sensory: Normal - Psychological Associated symptoms: Normal affect, Normal mood - Skin Skin Temperature: Warm Skin Moisture: Dry Skin Color: Normal Course - Vital Signs Vital signs: Temp Pulse Resp BP Pulse Ox 99.4 F 90 14 149/67 H 96 06/06/19 01:01 06/05/19 22:24 06/06/19 03:24 06/06/19 01:01 06/06/19 03:24 - Laboratory Result Diagrams: 06/06/19 00:25 06/06/19 00:25 Laboratory results interpreted by me: 06/06/19 06/06/19 06/06/19 00:25 00:25 00:25 WBC 13.6 H Plt Count 134 L Seg Neutrophils % 82.5 H Lymphocytes % 7.5 L Absolute Neutrophils 11.2 H PT 15.8 H Sodium 133.8 L BUN 27 H Glucose 133 H Total Protein 5.9 L Urine Protein Urine Glucose (UA) Urine Ketones Urine Blood 06/06/19 00:51 WBC Plt Count Seg Neutrophils % Lymphocytes % Absolute Neutrophils PT Sodium BUN Glucose Total Protein Urine Protein 30 H Urine Glucose (UA) 50 H Urine Ketones 25 H Urine Blood MODERATE H - Diagnostic Test Radiology reviewed: Reports reviewed Radiology results interpreted by me: 06/06/19 02:42 CT head shows no acute abnormality. Chest x-ray is negative. - EKG Interpretation by Me EKG shows normal: Sinus rhythm Rate: Normal [place]/QRS: LBBB - EKG is unchanged from previous EKG on September 15, 2018. When compared to previous EKG there are: No significant change Additional EKG results interpreted by me: 06/06/19 02:42 Old left bundle branch block. No STEMI. - Transfer of Care Notes: 06/06/19 04:48 Patient will be admitted by the hospitalist adjuster electrical contacts Dr. Owen Richard for further evaluation and management. Discharge - Discharge Clinical Impression: Generalized weakness, Mild dehydration, Adult failure to thrive Condition: Stable Disposition: ADMITTED INPATIENT Admitting Provider: Jose Manuel (Hospitalist) Unit Admitted: Medical Floor Referrals: ERIKA BAUTISTA MD [Primary Care Provider] - Follow up as needed
[2019-06-06 03:03] LABS: APPEARANCE,URINE CLEAR; BILIRUBIN,URINE NEGATIVE (NEGATIVE); COLOR,URINE YELLOW; GLUCOSE, URINE 50 mg/dL (NEGATIVE); KETONES,URINE 25 mg/dL (NEGATIVE)
[2019-06-06 03:04] LABS: LEUKOCYTE ESTERASE,URINE NEGATIVE (NEGATIVE); NITRITE,URINE NEGATIVE (NEGATIVE); PROTEIN,URINE 30 mg/dL (NEGATIVE); URINE SPECIFIC GRAVITY 1.021; UROBILINOGEN,URINE NEGATIVE mg/dL (<2.0)
--- NOTE | 2019-06-06 06:09 | PDOC H&P ---
History of Present Illness Admission Date/PCP: 06/06/19 04:51 ERIKA BAUTISTA MD Patient complains of: Generalized weakness History of Present Illness: DEANA DANIEL is a 84 year old female with a past medical history of remote intracranial hemorrhage but otherwise unknown as she is a poor historian, has not been seen in our facility prior and is no longer at bedside. She presents with an unclear duration of generalized weakness and intermittent confusion. In the emergency room she has leukocytosis, thrombocytopenia, unremarkable creatinine and CT head. She is awake and alert oriented x1 only but denies any focal pain or complaint. In no acute distress whatsoever no nuchal rigidity or photophobia. She is unaware of her home medication regiment. Calls to her Walker at [phone] are unanswered. Past Medical History Cardiac Medical History: Reports: Atrial Fibrillation, Hypertension - VARIES Denies: Myocardial Infarction Pulmonary Medical History: Denies: Asthma Neurological Medical History: Denies: Seizures GI Medical History: Reports: Gastroesophageal Reflux Disease Denies: Hepatitis, Hiatal Hernia Hematology: Denies: Anemia, Sickle Cell Disease Past Surgical History Past Surgical History: Reports: Cardiac Catheterization - breast tumor non cancer, Hysterectomy Denies: Amputation, Mastectomy, Pacemaker Social History Information Source: Patient, [facility] Records Lives with: Spouse/Significant other Smoking Status: Never Smoker - Advance Directive Resuscitation Status: Full Code Family History Family History: Other - Unobtainable Parental Family History Reviewed: No - Unobtainable Children Family History Reviewed: No - Unobtainable Sibling(s) Family History Reviewed.: No - Unobtainable Medication/Allergy Home Medications: Calcium/Magnesium/Vit D3 [Calcium 500 Mg Tablet] 1 each PO DAILY 03/24/12 Warfarin Sodium [Coumadin 5 Mg Tablet] 5 mg PO DAILY 03/24/12 Warfarin Sodium [Coumadin] 7.5 mg PO DAILY 03/24/12 Amlodipine Besylate 1 tab PO DAILY PRN 07/21/14 Ascorbic Acid [Vitamin C] 1 cap.sr PO DAILY 07/21/14 Dofetilide [Tikosyn 125 Mcg Capsule] 125 mcg PO QHS 07/21/14 Dofetilide [Tikosyn 125 Mcg Capsule] 250 mcg PO DAILY 07/21/14 Lovastatin [Mevacor] 20 mg PO DAILY 07/21/14 Metoprolol Succinate [Toprol Xl 25 mg Tab.sr] 12.5 mg PO BID 07/21/14 Multivitamin/Iron/Folic Acid [Centrum Ultra Women's Tablet] 1 each PO DAILY 07/21/14 [place]-3 Fatty Acids/Fish Oil [Fish Oil 300 Mg Softgel] 1 each PO DAILY 07/21/14 Allergies/Adverse Reactions: codeine [Codeine] Allergy (Verified 07/21/14 14:09) ITCHING phenobarbital [Phenobarbital] Allergy (Verified 07/21/14 14:09) clarithromycin [From Biaxin] Adverse Reaction (Verified 07/27/14 09:52) propafenone HCl [From Rythmol] Adverse Reaction (Verified 07/27/14 09:52) Review of Systems ROS unobtainable: Due to mental status Physical Exam Vital Signs: Temp Pulse Resp BP Pulse Ox 99.4 F 90 14 149/67 H 96 06/06/19 01:01 06/05/19 22:24 06/06/19 03:24 06/06/19 01:01 06/06/19 03:24 Intake & Output 06/04/19 06/05/19 06/06/19 11:59 11:59 11:59 Intake Total 1000 Balance 1000 Weight 67 kg General appearance: PRESENT: no acute distress, cooperative, thin, well- developed, well-nourished Head exam: PRESENT: atraumatic, normocephalic Eye exam: PRESENT: conjunctiva pink, EOMI, PERRLA. ABSENT: scleral icterus Ear exam: PRESENT: normal external ear exam Mouth exam: PRESENT: moist, tongue midline Neck exam: ABSENT: carotid bruit, JVD, lymphadenopathy, thyromegaly Respiratory exam: PRESENT: clear to auscultation carito. ABSENT: rales, rhonchi, wheezes Cardiovascular exam: PRESENT: RRR. ABSENT: diastolic murmur, rubs, systolic murmur Pulses: PRESENT: normal dorsalis pedis pul Vascular exam: PRESENT: normal capillary refill GI/Abdominal exam: PRESENT: normal bowel sounds, soft. ABSENT: distended, guarding, mass, organolmegaly, rebound, tenderness Rectal exam: PRESENT: deferred Extremities exam: PRESENT: full ROM. ABSENT: calf tenderness, clubbing, pedal edema Neurological exam: PRESENT: alert, awake, oriented to person, CN II-XII grossly intact. ABSENT: oriented to time Psychiatric exam: PRESENT: appropriate affect, normal mood, unusual affect. ABSENT: homicidal ideation, suicidal ideation Skin exam: PRESENT: dry, intact, warm. ABSENT: cyanosis, rash Results Laboratory Results: 06/06/19 00:25 06/06/19 00:25 06/06/19 06/06/19 06/06/19 00:25 00:25 00:51 WBC 13.6 H RBC 4.50 Hgb 13.4 Hct 38.9 MCV 87 MCH 29.7 MCHC 34.4 RDW 13.5 Plt Count 134 L Seg Neutrophils % 82.5 H Lymphocytes % 7.5 L Monocytes % 9.6 Eosinophils % 0.0 Basophils % 0.4 Absolute Neutrophils 11.2 H Absolute Lymphocytes 1.0 Absolute Monocytes 1.3 Absolute Eosinophils 0.0 Absolute Basophils 0.0 Sodium 133.8 L Potassium 4.0 Chloride 98 Carbon Dioxide 26 Anion Gap 10 BUN 27 H Creatinine 0.78 Est GFR ( Amer) > 60 Est GFR (Non-Af Amer) > 60 Glucose 133 H Lactic Acid 0.8 Calcium 9.0 Total Bilirubin 1.0 AST 23 ALT 20 Alkaline Phosphatase 70 Total Protein 5.9 L Albumin 4.0 Urine Color Urine Appearance Urine pH Ur Specific [place] Urine Protein Urine Glucose (UA) Urine Ketones Urine Blood Urine Nitrite Ur Leukocyte Esterase Urine WBC (Auto) Urine RBC (Auto) 06/06/19 00:51 WBC RBC Hgb Hct MCV MCH MCHC RDW Plt Count Seg Neutrophils % Lymphocytes % Monocytes % Eosinophils % Basophils % Absolute Neutrophils Absolute Lymphocytes Absolute Monocytes Absolute Eosinophils Absolute Basophils Sodium Potassium Chloride Carbon Dioxide Anion Gap BUN Creatinine Est GFR ( Amer) Est GFR (Non-Af Amer) Glucose Lactic Acid Calcium Total Bilirubin AST ALT Alkaline Phosphatase Total Protein Albumin Urine Color YELLOW Urine Appearance CLEAR Urine pH 5.0 Ur Specific [place] 1.021 Urine Protein 30 H Urine Glucose (UA) 50 H Urine Ketones 25 H Urine Blood MODERATE H Urine Nitrite NEGATIVE Ur Leukocyte Esterase NEGATIVE Urine WBC (Auto) 3 Urine RBC (Auto) 8 06/06/19 06/06/19 00:25 00:25 Creatine Kinase 37 CK-MB (CK-2) 0.95 Troponin I < 0.012 Impressions: Chest X-Ray 06/06/19 01:11 IMPRESSION: No acute cardiopulmonary findings. Head CT 06/06/19 01:12 IMPRESSION: Atrophy and chronic small vessel ischemic changes with no acute intracranial abnormality. Assessment and Plan - Diagnosis (1) Altered mental status Is this a current diagnosis for this admission?: Yes Plan: Unclear baseline, appears socially appropriate but oriented x1 only. Follow-up with Walker at [phone]. Supportive measures (2) Leukocytosis Is this a current diagnosis for this admission?: Yes Plan: Completely nonfocal evaluation, denies specific complaint, follow-up ESR and CBC, cruz culture PRN fever (3) Thrombocytopenia Is this a current diagnosis for this admission?: Yes Plan: Stable and unchanged from December 2018 (4) Adult failure to thrive Is this a current diagnosis for this admission?: Yes Plan: Depends on work-up results, discharge planning consult for possible long-term placement. - Time Time Spent with patient: 35 or more minutes - Inpatient Certification Medical Necessity: Need Close Monitoring Due to Risk of Patient Decompensation
[2019-06-06] MEDS ORDERED: ACETAMINOPHEN 325 MG TABLET PO PRN (06:10)
[2019-06-06] MEDS ORDERED: IPRATROPIUM/ALBUTEROL 0.5-2.5 MG/3 ML AMPUL NEB PRN (06:10)
[2019-06-06] MEDS ORDERED: MAGNESIUM HYDROXIDE SUSP 30 ML UDCUP PO PRN (06:10)
[2019-06-06] MEDS: DOCUSATE SODIUM 100 MG CAPSULE PO SCH ×2 (11:40→18:37)
[2019-06-06] MEDS ORDERED: HEPARIN SOD (PORCINE) 5,000 UNIT/ML 1 ML SYRINGE SUBCUT SCH (14:00)
--- NOTE | 2019-06-06 14:15 | Progress Note ---
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 Her past medical history significant for hypertension, and atrial fibrillation. On exam the patient's patient is resting in bed comfortably. She is saturating well on room air. She is awake alert and oriented to time place and person. Accepted this patient and I will be her primary attending.
[2019-06-06] MEDS ORDERED: AMLODIPINE BESYLATE 2.5 MG TABLET PO PRN (15:36)
--- NOTE | 2019-06-06 19:20 | EKG REPORT ---
SEVERITY:- ABNORMAL ECG - SINUS RHYTHM LEFT BUNDLE BRANCH BLOCK : Confirmed by: Abelardo Pittman 06-Jun-2019 19:19:01
[2019-06-06] MEDS: APIXABAN 2.5 MG TABLET PO SCH (21:24)
[2019-06-06] MEDS ORDERED: DOFETILIDE 125 MCG CAPSULE PO SCH (22:00)
[2019-06-07] MEDS ORDERED: METOPROLOL TARTRATE PF/INJ 5 MG/5 ML SDV IV ONE ×3 (03:02→06:13)
[2019-06-07 03:19] LABS: URINE AMPHETAMINES SCREEN NEGATIVE; URINE BARBITURATES SCREEN NEGATIVE; URINE BENZODIAZEPINES SCREEN NEGATIVE; URINE COCAINE SCREEN NEGATIVE; URINE MARIJUANA (THC) SCREEN NEGATIVE; URINE METHADONE SCREEN NEGATIVE; URINE PHENCYCLIDINE SCREEN NEGATIVE
[2019-06-07 04:33] LABS: ABSOLUTE LYMPHOCYTES (AUTO) 1.2 10^3/uL (0.5-4.7); ABSOLUTE NEUT (AUTO) 8.3 10^3/uL (1.7-8.2); BASOPHILS % (AUTO) 0.3 % (0-2); EOSINOPHILS % (AUTO) 0.1 % (0-6); HEMATOCRIT 35.7 % (36.0-47.0); HEMOGLOBIN 12.4 g/dL (12.0-15.5); LYMPHOCYTES % (AUTO) 11.6 % (13-45); MEAN CORPUSCULAR HEMOGLOBIN 29.8 pg (27.0-33.4); MEAN CORPUSCULAR HGB CONC 34.6 g/dL (32.0-36.0); MEAN CORPUSCULAR VOLUME 86 fl (80-97); MONOCYTES % (AUTO) 9.3 % (3-13); PLATELET COUNT 121 10^3/uL (150-450); RED BLOOD COUNT 4.15 10^6/uL (3.72-5.28); RED CELL DISTRIBUTION WIDTH 13.5 % (11.5-14.0); SEGMENTED NEUTROPHILS % (AUTO) 78.7 % (42-78); TOTAL CELLS COUNTED % (AUTO) 100 %; WHITE BLOOD COUNT 10.5 10^3/uL (4.0-10.5)
[2019-06-07 04:53] LABS: ANION GAP 8 (5-19); BLOOD UREA NITROGEN 16 mg/dL (7-20); CALCIUM 8.8 mg/dL (8.4-10.2); CARBON DIOXIDE 25 mmol/L (22-30); CHLORIDE 102 mmol/L (98-107); GLUCOSE 121 mg/dL (75-110); POTASSIUM 3.6 mmol/L (3.6-5.0); SODIUM 134.8 mmol/L (137-145)
[2019-06-07] MEDS ORDERED: (PENDING PHARMACY ID) (Lovastatin [Mevacor] 10 MG) PO SCH (08:00)
[2019-06-07] MEDS ORDERED: SIMVASTATIN 10 MG TABLET PO SCH (08:00)
[2019-06-07 08:18] VITALS: BP 148/83
[2019-06-07] MEDS: DOCUSATE SODIUM 100 MG CAPSULE PO SCH (09:11)
[2019-06-07] MEDS: APIXABAN 2.5 MG TABLET PO SCH (09:11)
--- NOTE | 2019-06-07 09:17 | PDOC DISCHARGE SUMMARY ---
General - Admit/Disc Date/PCP Admission Date/Primary Care Provider: 06/06/19 04:51 ERIKA BAUTISTA MD Discharge Date: 06/07/19 - Discharge Diagnosis (1) Atrial fibrillation with RVR Is this a current diagnosis for this admission?: Yes (2) Adult failure to thrive Is this a current diagnosis for this admission?: Yes (3) Leukocytosis Is this a current diagnosis for this admission?: Yes (4) Acute metabolic encephalopathy Is this a current diagnosis for this admission?: Yes - Additional Information Resuscitation Status: Full Code Prescriptions: Cholecalciferol (Vitamin D3) [D3] 2,000 unit PO DAILY #30 capsule Home Medications: Alprazolam [Xanax 0.5 mg Tablet] 0.25 mg PO HSP PRN 06/06/19 Amlodipine Besylate [Norvasc 2.5 mg Tablet] 2.5 mg PO DAILYP PRN 06/06/19 Apixaban [Eliquis 2.5 mg Tablet] 2.5 mg PO Q12 06/06/19 Dofetilide [Tikosyn 125 Mcg Capsule] 125 mcg PO QHS 06/06/19 Dofetilide [Tikosyn 125 Mcg Capsule] 250 mcg PO DAILY 06/06/19 Lovastatin 20 mg PO MOWEFR@0800 06/06/19 Lovastatin [Mevacor] 10 mg PO SUTUTHSA@0800 06/06/19 Metoprolol Tartrate [Lopressor 25 mg Tablet] 12.5 mg PO Q12 06/06/19 Pyridoxine HCl (Vitamin B6) [Vitamin B-6] 25 mg PO DAILY 06/06/19 Cholecalciferol (Vitamin D3) [D3] 2,000 unit PO DAILY #30 capsule 06/07/19 History of Present Illness History of Present Illness: DEANA DANIEL is a 84 year old female with a past medical history of remote intracranial hemorrhage but otherwise unknown as she is a poor historian, has not been seen in our facility prior and is no longer at bedside. She presents with an unclear duration of generalized weakness and intermittent confusion. In the emergency room she has leukocytosis, thrombocytopenia, unremarkable creatinine and CT head. She is awake and alert oriented x1 only but denies any focal pain or complaint. In no acute distress whatsoever no nuchal rigidity or photophobia. She is unaware of her home medication regiment. Calls to her Walker at [phone] are unanswered. 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 Her past medical history significant for hypertension, and atrial fibrillation. On exam the patient's patient is resting in bed comfortably. She is saturating well on room air. She is awake alert and oriented to time place and person. Accepted this patient and I will be her primary attending. 06/07/2019: Patient seen and examined while she is resting in bed comfortably. She is awake alert and oriented. She is not in pain or any form of distress. Last night patient had an episode of A. fib with RVR which is resolved after she was given Lopressor. During her vital signs and blood works are within normal limits her leukocytosis subsided. Patient is stable enough to go home today. I will send her home with cholecalciferol 2000 U p.o. daily. Patient advised to keep up with her upcoming appointment. Physical Exam Vital Signs: Temp Pulse Resp BP Pulse Ox 98.4 F 91 17 148/83 H 97 06/07/19 08:00 06/07/19 08:00 06/07/19 08:00 06/07/19 08:00 06/07/19 08:00 Intake & Output 06/06/19 06/07/19 06/08/19 06:59 06:59 06:59 Intake Total 1000 598 Balance 1000 598 Weight 67 kg 64.9 kg General appearance: PRESENT: no acute distress Head exam: PRESENT: atraumatic Eye exam: PRESENT: conjunctiva pink Neck exam: ABSENT: carotid bruit, JVD, lymphadenopathy, thyromegaly Respiratory exam: PRESENT: clear to auscultation carito. ABSENT: rales, rhonchi, wheezes Cardiovascular exam: PRESENT: irregular rhythm Neurological exam: PRESENT: alert, awake, oriented to person, oriented to place, oriented to time, oriented to situation Results Laboratory Results: 06/07/19 04:01 06/07/19 04:01 06/07/19 06/07/19 04:01 04:01 WBC 10.5 RBC 4.15 Hgb 12.4 Hct 35.7 L MCV 86 MCH 29.8 MCHC 34.6 RDW 13.5 Plt Count 121 L Seg Neutrophils % 78.7 H Lymphocytes % 11.6 L Monocytes % 9.3 Eosinophils % 0.1 Basophils % 0.3 Absolute Neutrophils 8.3 H Absolute Lymphocytes 1.2 Absolute Monocytes 1.0 Absolute Eosinophils 0.0 Absolute Basophils 0.0 Sodium 134.8 L Potassium 3.6 Chloride 102 Carbon Dioxide 25 Anion Gap 8 BUN 16 Creatinine 0.63 Est GFR ( Amer) > 60 Est GFR (Non-Af Amer) > 60 Glucose 121 H Calcium 8.8 06/06/19 06/06/19 00:25 00:25 Creatine Kinase 37 CK-MB (CK-2) 0.95 Troponin I < 0.012 Impressions: Chest X-Ray 06/06/19 01:11 IMPRESSION: No acute cardiopulmonary findings. Head CT 06/06/19 01:12 IMPRESSION: Atrophy and chronic small vessel ischemic changes with no acute intracranial abnormality. Qualifiers - * PATIENT BEING DISCHARGED WITH ANY OF THE FOLLOWING DIAGNOSIS: No Acute Heart Failure - Is this a Heart Failure Patient?: No LVEF < 40%?: No- if no continue to question #3 3. Anticoagulant therapy for permanect/persistent/paraoxysmal Afib or Aflutter: N/A
[2019-06-07] MEDS ORDERED: PYRIDOXINE HCL 50 MG TABLET PO SCH (10:00)
[2019-06-07] MEDS ORDERED: DOFETILIDE 125 MCG CAPSULE PO SCH (10:00)
[2019-06-07] MEDS ORDERED: METOPROLOL TARTRATE 25 MG TABLET PO SCH (10:00)
[2019-06-07] MEDS ORDERED: PYRIDOXINE HCL 25 MG PO SCH (10:00)
[2019-06-08] MEDS ORDERED: SIMVASTATIN 10 MG TABLET PO SCH (08:00)
== END 2019-06-07 10:35 | disposition home or self-care (01) ==
LOC: ER 21:35 → EH 06-06 04:51 → INTOOBSV 06-06 04:51 → 4N 06-06 12:33
PROVIDERS: ADMIT Internal Medicine; ATTEND Internal Medicine
DX: I48.91 Unspecified atrial fibrillation (principal); R62.7 Adult failure to thrive; D72.829 Elevated white blood cell count, unspecified; G93.41 Metabolic encephalopathy; I10 Essential (primary) hypertension; R53.1 Weakness; D69.6 Thrombocytopenia, unspecified; I44.7 Left bundle-branch block, unspecified; E86.0 Dehydration; Z79.899 Other long term (current) drug therapy; Z79.02 Long term (current) use of antithrombotics/antiplatelets; Z98.890 Other specified postprocedural states
CPT/HCPCS: 93005; 99285; 96360; 51701; 36415 ×2; 87040; 87086; 82553; 82550; 83735; 84100; 84443; 85025 ×2; 85652; 85610; 85730; 80048; 80053; 81001; 84484; 80307; 83605; 71045; 70450; 93010; G0378 ×2; A9270 ×8; J3490; J7030

== ENCOUNTER 2020-02-13 08:12 | Emergency (ER) | payer MEDICARE ==
[2020-02-13] MEDS ORDERED: NORMAL SALINE 1000 ML 1,000 ML IV ONE ×2 (09:51→12:19)
[2020-02-13 10:41] LABS: ABSOLUTE LYMPHOCYTES (AUTO) 0.8 10^3/uL (0.5-4.7); ABSOLUTE MONOCYTES (AUTO) 0.5 10^3/uL (0.1-1.4); ABSOLUTE NEUT (AUTO) 4.3 10^3/uL (1.7-8.2); BASOPHILS % (AUTO) 0.4 % (0-2); EOSINOPHILS % (AUTO) 0.1 % (0-6); HEMATOCRIT 33.5 % (36.0-47.0); HEMOGLOBIN 11.6 g/dL (12.0-15.5); LYMPHOCYTES % (AUTO) 13.5 % (13-45); MEAN CORPUSCULAR HEMOGLOBIN 30.1 pg (27.0-33.4); MEAN CORPUSCULAR HGB CONC 34.7 g/dL (32.0-36.0); MEAN CORPUSCULAR VOLUME 87 fl (80-97); MONOCYTES % (AUTO) 9.3 % (3-13); PLATELET COUNT 143 10^3/uL (150-450); RED BLOOD COUNT 3.86 10^6/uL (3.72-5.28); SEGMENTED NEUTROPHILS % (AUTO) 76.7 % (42-78); TOTAL CELLS COUNTED % (AUTO) 100 %; WHITE BLOOD COUNT 5.6 10^3/uL (4.0-10.5)
[2020-02-13 10:44] LABS: VENOUS BLOOD HCO3 25.4 mmol/L (20-32); VENOUS BLOOD PCO2 40.1 mmHg (35-63); VENOUS BLOOD PH 7.42 (7.30-7.42)
[2020-02-13 10:49] LABS: APPEARANCE,URINE CLEAR; BILIRUBIN,URINE NEGATIVE (NEGATIVE); COLOR,URINE STRAW; GLUCOSE, URINE NEGATIVE (NEGATIVE); KETONES,URINE NEGATIVE (NEGATIVE); LEUKOCYTE ESTERASE,URINE NEGATIVE (NEGATIVE); NITRITE,URINE NEGATIVE (NEGATIVE); PROTEIN,URINE NEGATIVE (NEGATIVE); URINE SPECIFIC GRAVITY 1.005; UROBILINOGEN,URINE NEGATIVE mg/dL (<2.0)
[2020-02-13 11:00] LABS: ALBUMIN 3.5 g/dL (3.5-5.0); ALKALINE PHOSPHATASE 59 U/L (38-126); ANION GAP 9 (5-19); ASPARTATE AMINO TRANSFERASE 21 U/L (14-36); BILIRUBIN,DIRECT 0.2 mg/dL (0.0-0.4); BILIRUBIN,TOTAL 0.5 mg/dL (0.2-1.3); BLOOD UREA NITROGEN 12 mg/dL (7-20); CALCIUM 8.5 mg/dL (8.4-10.2); CARBON DIOXIDE 26 mmol/L (22-30); CHLORIDE 93 mmol/L (98-107); GLUCOSE 93 mg/dL (75-110); POTASSIUM 4.3 mmol/L (3.6-5.0); TOTAL PROTEIN 6.1 g/dL (6.3-8.2)
[2020-02-13 11:04] LABS: A TYPE INFLUENZA AG NEGATIVE (NEGATIVE); B INFLUENZA AG NEGATIVE (NEGATIVE)
[2020-02-13 11:08] LABS: INTERNATIONAL RATION (INR) 1.14; PROTHROMBIN TIME 14.7 SEC (11.4-15.4)
[2020-02-13 11:16] LABS: TROPONIN I 0.014 ng/mL
--- NOTE | 2020-02-13 11:18 | RADIOLOGY REPORT (SQ) ---
EXAM DESCRIPTION: CHEST 2 VIEWS COMPLETED DATE/TIME: 02/13/2020 11:09 am REASON FOR STUDY: cough COMPARISON: 2018. NUMBER OF VIEWS: Two view. TECHNIQUE: Frontal and lateral radiographic views of the chest acquired. LIMITATIONS: None. FINDINGS: LUNGS AND PLEURA: No opacities, masses or pneumothorax. No pleural effusion. Attenuated bl ood vessels and flattened cesar-diaphragms. MEDIASTINUM AND HILAR STRUCTURES: No masses. No contour abnormalities. HEART AND VASCULAR STRUCTURES: Heart normal in size and contour. No evidence for failure. BONES: No acute findings. HARDWARE: None in the chest. OTHER: No other significant finding. IMPRESSION: COPD. NO ACUTE RADIOGRAPHIC FINDING IN THE CHEST. TECHNICAL DOCUMENTATION: JOB ID: [id number] 2010 [employer]- All Rights Reserved Reading location - IP/workstation name: [email or web address]
[2020-02-13] MEDS ORDERED: METHYLPREDNISOLONE INJ 125 MG/2 ML SDV IV ONE (12:46)
[2020-02-13 13:04] LABS: A TYPE INFLUENZA AG NEGATIVE (NEGATIVE); B INFLUENZA AG NEGATIVE (NEGATIVE)
[2020-02-13 15:28] LABS: BLOOD UREA NITROGEN 7 mg/dL (7-20); GLUCOSE 79 mg/dL (75-110)
[2020-02-13 15:35] LABS: CARBON DIOXIDE 22 mmol/L (22-30); CHLORIDE 111 mmol/L (98-107)
[2020-02-13 15:39] LABS: CALCIUM 6.4 mg/dL (8.4-10.2)
[2020-02-13 15:41] LABS: ANION GAP 4 (5-19)
[2020-02-13] MEDS ORDERED: POTASSIUM CHLORIDE 10 MEQ TABLET.ER PO ONE (15:52)
[2020-02-13] MEDS ORDERED: CALCIUM GLUCONATE 1000 MG/10 ML INJ IV ONE (15:53)
[2020-02-13 17:11] VITALS: BP 168/70
--- NOTE | 2020-02-15 00:33 | EKG REPORT ---
SEVERITY:- ABNORMAL ECG - SINUS RHYTHM LEFT BUNDLE BRANCH BLOCK : Confirmed by: Abelardo Pittman 15-Feb-2020 00:33:13
--- NOTE | 2020-02-15 07:32 | ER Document Report ---
Entered by DANITA CRUMP SCRIBE 02/13/20 0939 Acting as scribe for:NIMESH CAMARILLO MD ED General - General Chief Complaint: Cough Stated Complaint: COUGH,DIFFICULTY BREATHING Time Seen by Provider: 02/13/20 09:12 Primary Care Provider: ANGELICA WESLEY MD [Primary Care Provider] - Follow up as needed Information source: Patient Notes: This 84 year old female patient presents to the emergency department today with a cough that has been present for the past x6 days. Patient states the cough worsened x4 days ago and it is non-productive. Patient states she has taken cough syrup and prescriptions, which have not helped. Patient states she has nasal drainage, a sore throat, and pain after swallowing medicine. Patient denies any fever, headache, chest pain, or pain in her ear. Patient states she feels more weakened than usual. TRAVEL OUTSIDE OF THE [place] IN LAST 30 DAYS: No - Related Data Allergies/Adverse Reactions: clarithromycin [From Biaxin] Allergy (Verified 06/06/19 09:53) codeine [Codeine] Allergy (Verified 07/21/14 14:09) ITCHING doxycycline Allergy (Verified 06/06/19 09:53) ondansetron Allergy (Verified 06/06/19 09:53) phenobarbital [Phenobarbital] Allergy (Verified 07/21/14 14:09) propafenone HCl [From Rythmol] Allergy (Verified 06/06/19 09:53) Home Medications: cefdubeur, tikosyn, metoprolol, eliquis, lovastatin, vit d, stool softner Past Medical History - General Information source: Patient - Social History Smoking Status: Never Smoker Cigarette use (# per day): No Family History: Reviewed & Not Pertinent Patient has suicidal ideation: No Patient has homicidal ideation: No - Past Medical History Cardiac Medical History: Reports: Hx Atrial Fibrillation GI Medical History: Reports: Hx Gastroesophageal Reflux Disease Psychiatric Medical History: Reports: Hx Dementia Past Surgical History: Reports: Hx Hysterectomy Review of Systems - Review of Systems Constitutional: See HPI, Weakness. denies: Fever EENT: See HPI, Nose discharge, Throat pain. denies: Ear pain Cardiovascular: See HPI. denies: Chest pain Respiratory: See HPI, Cough - Non-productive. Gastrointestinal: No symptoms reported Genitourinary: No symptoms reported Female Genitourinary: No symptoms reported Musculoskeletal: No symptoms reported Skin: No symptoms reported Hematologic/Lymphatic: No symptoms reported Neurological/Psychological: See HPI. denies: Headaches -: Yes All other systems reviewed and negative Physical Exam - Vital signs Vitals: Temp Pulse Resp BP Pulse Ox 98.1 F 95 16 147/72 H 96 02/13/20 08:15 02/13/20 08:15 02/13/20 08:15 02/13/20 08:15 02/13/20 08:15 - General General appearance: Appears well, Alert - HEENT Head: Normocephalic, Atraumatic Eyes: Normal Pupils: PERRL - Respiratory Respiratory status: No respiratory distress Chest status: Nontender Breath sounds: Normal - Cardiovascular Rhythm: Regular Heart sounds: Normal auscultation Murmur: No - Abdominal Inspection: Normal Distension: No distension Bowel sounds: Normal - Extremities General upper extremity: Normal inspection. No: Edema General lower extremity: Normal inspection. No: Edema - Neurological Neuro grossly intact: Yes Cognition: Normal Orientation: AAOx4 - Psychological Associated symptoms: Normal affect, Normal mood - Skin Skin Temperature: Warm Skin Moisture: Dry Skin Color: Normal Course - Vital Signs Vital signs: Temp Pulse Resp BP Pulse Ox 98.2 F 95 12 148/68 H 97 02/13/20 14:58 02/13/20 08:15 02/13/20 13:01 02/13/20 13:01 02/13/20 13:01 - Laboratory Result Diagrams: 02/13/20 10:10 02/13/20 14:55 Laboratory results interpreted by me: 02/13/20 02/13/20 02/13/20 10:10 10:10 10:10 Hgb 11.6 L Hct 33.5 L Plt Count 143 L Sodium 127.8 L Potassium Chloride 93 L Anion Gap Creatinine Lactic Acid 2.2 H Calcium Total Protein 6.1 L Urine Ascorbic Acid 02/13/20 02/13/20 10:10 14:55 Hgb Hct Plt Count Sodium 136.6 L Potassium 3.0 L* D Chloride 111 H Anion Gap 4 L Creatinine 0.44 L Lactic Acid Calcium 6.4 L* Total Protein Urine Ascorbic Acid 40 H Repeat labs shows patient to have a improvement in her lactic acid to 2.0. Also her sodium has improved to 136 with IV normal saline. However patient missed a meal today and her potassium has dropped to 3.0. Patient is eating a meal and that should improve as well as some supplement has been ordered. Patient's calcium also decreased from 8.5-6.4 therefore IV calcium 1 g has been ordered. Patient's troponin has continued to be mildly elevated at 0.022 at this time patient again does not have any discomfort in her chest or any kind of pain patient has a chronic left bundle branch block which is not new all of these factors were discussed with the admit doctor who stated that patient still did not meet criteria to be admitted to the hospital. Therefore patient will be d ischarged home on steroids and Mucinex DM tablets. - Diagnostic Test Radiology reviewed: Image reviewed, Reports reviewed Radiology results interpreted by me: 02/13/20 14:54 Chest x-ray shows no acute process no infiltrate. COPD.diagnosed per radiology report. - EKG Interpretation by Me Additional EKG results interpreted by me: 02/13/20 14:54 Twelve-lead EKG shows a normal sinus rhythm rate of 81 with a left bundle branch block. Left bundle branch block is not new based on referring to a prior EKG on 06/19/2019 team. Discharge - Discharge Clinical Impression: COPD exacerbation, Bronchitis, Elevated troponin, Left bundle branch block (LBBB), Hyponatremia, Hypokalemia Disposition: HOME, SELF-CARE Additional Instructions: Chronic Obstructive Lung Disease You have chronic obstructive lung disease (COPD). The symptoms come from emphysema (damage to small airways, with trapping of air in large sacks in the lung) and chronic bronchitis (repeated infection and damage to larger airways). The cause is almost always cigarette smoking, although dust exposure, asthma, and infections contribute. You should avoid fumes, dust, and smoke (especially tobacco smoke). Your condition will flare from time to time. There is no cure, but the symptoms can be treated. Bronchodilators (asthma medicine) are often helpful. Antibiotics help when infection is present. When shortness of breath is severe, we may prescribe cortisone medication. If medicine doesn't help enough, we can arrange for you to have an oxygen tank at home. Notify your doctor at once if sputum becomes thick, foul, or bloody, if you develop a fever or chest pain, or if your shortness of breath worsens. You have been prescribed prednisone to take twice a day 20 mg which should assist in controlling mucus production and decreased cough. Continue using your nebulizer treatment which you are now using. Continue taking your Robitussin-DM cough syrup as well and what ever other medications you are on such as the antibiotic complete that course of cefdinir. Follow-up with your primary care physician or return to the emergency department if you have any problems. Prescriptions: Prednisone [Deltasone 20 mg Tablet] 20 mg PO BID #12 tablet Referrals: ANGELICA WESLEY MD [Primary Care Provider] - Follow up as needed I personally performed the services described in the documentation, reviewed and edited the documentation which was dictated to the scribe in my presence, and it accurately records my words and actions.
== END 2020-02-13 17:12 | disposition home or self-care (01) ==
LOC: ER 08:12
DX: J44.1 Chronic obstructive pulmonary disease with (acute) exacerbation (principal); J40 Bronchitis, not specified as acute or chronic; E87.1 Hypo-osmolality and hyponatremia; E87.6 Hypokalemia; R79.89 Other specified abnormal findings of blood chemistry; I44.7 Left bundle-branch block, unspecified; R05 Cough; R09.89 Other specified symptoms and signs involving the circulatory and respiratory systems; J02.9 Acute pharyngitis, unspecified; R53.1 Weakness; I48.91 Unspecified atrial fibrillation; Z79.01 Long term (current) use of anticoagulants; Z79.899 Other long term (current) drug therapy; Z88.1 Allergy status to other antibiotic agents; Z88.6 Allergy status to analgesic agent; Z88.5 Allergy status to narcotic agent; Z88.8 Allergy status to other drugs, medicaments and biological substances
CPT/HCPCS: 93005; 99283; 96361; 96374; 96375; 36415; 87040; 87070; 87880; 83605; 85025; 85610; 85730; 80053; 81001; 84484; 82803; 87804; 83880; 71046; 93010; J0610; J2930; J7030; A9270